=== PATIENT | male | born 2000 | race Two or more races ===

== ENCOUNTER 2024-07-07 01:10 | Inpatient (IN) | payer SELFPAY ==
[~2024-07-07] VITALS: Ht 167.6 cm; Wt 109.1 kg
[2024-07-07] MEDS: MORPHINE SULFATE 2 MG/ML SYRINGE IVP ONE ×2 (02:37→05:00)
[2024-07-07] MEDS: SODIUM CHLORIDE 0.9% 1,000 ML IV ONE (02:38)
[2024-07-07 02:39] LABS: ANION GAP 11 mmol/L (8-16); CARBON DIOXIDE 27 mmol/L (22-29); CHLORIDE 99 mmol/L (98-107); CREATININE 0.83 mg/dL (0.60-1.30); GLOMERULAR FILTR. RATE CALC > 60 mL/min (>60); GLUCOSE,RANDOM 106 mg/dL (70-110); LIPASE 27 U/L (16-77); POTASSIUM 4.2 mmol/L (3.5-5.1); SODIUM SERUM 137 mmol/L (136-145); UREA NITROGEN, BLOOD 18 mg/dL (7-18)
[2024-07-07 02:41] LABS: BASOPHILS % (AUTO) 0.3 % (0.0-2.0); EOSINOPHILS % (AUTO) 0.2 % (1.0-6.0); HEMATOCRIT 45.2 % (41-53); LYMPHOCYTES # (AUTO) 1.5 K/uL (1.0-4.8); LYMPHOCYTES % (AUTO) 8.8 % (22.0-44.0); MEAN CORPUSCULAR HEMOGLOBIN 28.8 pg (26.0-34.0); MEAN CORPUSCULAR HGB CONC 33.2 G/dL (31.0-37.0); MEAN CORPUSCULAR VOLUME 87 fL (80-100); MONOCYTES # (AUTO) 0.6 K/uL (0.1-1.0); MONOCYTES % (AUTO) 3.7 % (2.0-9.0); PLATELET COUNT (AUTO) 329 K/uL (150-450); RED CELL DISTRIBUTION WIDTH 12.8 % (11.5-14.5); WHITE BLOOD COUNT (AUTO) 17.2 K/uL (4.5-11.0)
[2024-07-07 02:59] LABS: APPEARANCE,URINE TURBID (CLEAR); BILIRUBIN,URINE NEGATIVE (NEGATIVE); COLOR,URINE YELLOW (YELLOW); GLUCOSE, URINE (UA) NEGATIVE (NEGATIVE); KETONES,URINE 40-60 mg/dL (NEGATIVE); LEUKOCYTE ESTERASE ,URINE NEGATIVE (NEGATIVE); NITRATE,URINE NEGATIVE (NEGATIVE); OCCULT BLOOD,URINE NEGATIVE (NEGATIVE); PH,URINE 7.5 (5.0-8.0); PROTEIN,URINE TRACE mg/dL (NEGATIVE); SPECIFIC GRAVITIY, URINE 1.026 (1.003-1.030); UROBILINOGEN,URINE <=1.0 mg/dL (<=1.0)
[2024-07-07 05:45] LABS: ALANINE AMINOTRANSFERASE 26 U/L (12-78); ALBUMIN 3.8 g/dL (3.4-5.0); ALKALINE PHOSPHATASE 98 U/L (46-116); ASPARTATE AMINOTRANSFERASE 16 U/L (15-37); BILIRUBIN,TOTAL 0.5 mg/dL (0.1-1.0); TOTAL PROTEIN, SERUM 8.1 g/dL (6.4-8.2)
[2024-07-07] MEDS ORDERED: SUGAMMADEX SODIUM 200 MG/2 ML VIAL IVP ONE (06:01)
[2024-07-07] MEDS ORDERED: ROCURONIUM BROMIDE 10 MG/ML 5 ML VIAL ONE (06:01)
[2024-07-07] MEDS ORDERED: MIDAZOLAM HCL 2 MG/2 ML VIAL ONE (06:01)
[2024-07-07] MEDS ORDERED: FentaNYL CITRATE PF 100 MCG/2 ML VIAL ONE (06:01)
[2024-07-07] MEDS ORDERED: ACETAMINOPHEN/ISO-OSM 1000 MG/100 ML BOTTLE IV ONE (06:01)
[2024-07-07] MEDS ORDERED: PROPOFOL 1% 20 ML VIAL IVP ONE (06:01)
[2024-07-07] MEDS ORDERED: ONDANSETRON HCL 4 MG/2 ML VIAL ONE (06:01)
[2024-07-07] MEDS ORDERED: KETOROLAC TROMETHAMINE 60 MG/2 ML VIAL IM ONE (06:01)
[2024-07-07] MEDS ORDERED: DEXAMETHASONE SOD PHOS 4 MG/ML VIAL ONE (06:01)
[2024-07-07] MEDS ORDERED: LIDOCAINE/PF 2% 5 ML SYRINGE IVP ONE (06:01)
[2024-07-07] MEDS ORDERED: METOPROLOL TARTRATE 5 MG/5 ML VIAL ONE (06:01)
[2024-07-07] MEDS ORDERED: MORPHINE SULFATE/PF 0.5 MG/ML 10 ML AMP ONE (06:01)
[2024-07-07] MEDS: PIPERACILLIN/TAZO 3.375 GM/D5W 50 ML IV ONE (07:13)
[2024-07-07 12:14] VITALS: BP 130/79; PULSE 90; RESP 18; TEMP 98.8; O2SAT 90
[2024-07-07] MEDS ORDERED: ZOLPIDEM TARTRATE 5 MG TABLET PO PRN (13:45)
[2024-07-07] MEDS ORDERED: ONDANSETRON HCL 4 MG/2 ML VIAL IVP PRN (13:45)
[2024-07-07] MEDS ORDERED: IPRATROPIUM BROMIDE 0.5 MG/2.5 ML NEB SOLUTION NEB PRN (13:45)
[2024-07-07] MEDS ORDERED: MAGNESIUM HYDROXIDE SUSPENSION 30 ML UDCUP PO PRN (13:45)
[2024-07-07] MEDS ORDERED: BISACODYL 10 MG RECTAL RECTAL SUPPOSITORY PR PRN (13:45)
[2024-07-07] MEDS ORDERED: ALBUTEROL SULFATE 2.5 MG/0.5 ML NEB SOLUTION NEB PRN (13:45)
[2024-07-07] MEDS: DEXTROSE 5%-0.45% SODIUM CHL 1,000 ML IV SCH (14:23)
[2024-07-07] MEDS: PIPERACILLIN/TAZO 3.375 GM/D5W 50 ML IV SCH (15:22)
[2024-07-07] MEDS: HEPARIN SODIUM,PORCINE 5,000 UNITS/ML VIAL SQ SCH (15:22)
[2024-07-07] MEDS: ACETAMINOPHEN 325 MG TABLET PO PRN (15:32)
[2024-07-07 16:05] VITALS: BP 132/76; PULSE 88; RESP 18; TEMP 101.1; O2SAT 98
[2024-07-07] MEDS ORDERED: MEBROFENIN TC99M/MCL ISOTOPE 1 EA INJ INJ ONE (18:30)
[2024-07-07 20:11] VITALS: BP 132/79; PULSE 86; RESP 18; TEMP 99.8; O2SAT 98
[2024-07-07 20:33] VITALS: TEMP 98.8
[2024-07-07] MEDS: MORPHINE SULFATE 2 MG/ML SYRINGE IVP PRN (20:33)
[2024-07-08 03:36] VITALS: BP 128/76; PULSE 91; RESP 18; TEMP 99.8; O2SAT 99
[2024-07-08 04:00] VITALS: TEMP 99
[2024-07-08 08:25] VITALS: BP 132/77; PULSE 89; RESP 18; TEMP 98.9; O2SAT 96
[2024-07-08] MEDS: PANTOPRAZOLE SODIUM 40 MG/VIAL IVP SCH (08:34)
[2024-07-08] MEDS ORDERED: RINGERS SOLUTION,LACTATED 1,000 ML IV ONE (09:08)
[2024-07-08] MEDS: ETHYL ALCOHOL 62% ANTISEPTIC NASAL SANITIZER 0.6 ML AMPUL NASAL ONE (09:32)
[2024-07-08] MEDS ORDERED: SODIUM CL IRRIG SOLN BAG 3,000 ML IRRIG ONE (10:23)
[2024-07-08] MEDS ORDERED: FentaNYL CITRATE PF 100 MCG/2 ML VIAL IVP PRN (10:45)
[2024-07-08] MEDS ORDERED: HYDROmorphone HCL 2 MG/ML SYRINGE IVP PRN (10:45)
[2024-07-08] MEDS ORDERED: MEPERIDINE-PF 25 MG/ML VIAL IVP PRN (10:45)
[2024-07-08] MEDS: CHLORHEXIDINE GLUCONATE 2% TOWELETTE [2'S/6'S] TP ONE (10:50)
[2024-07-08] MEDS: RINGERS SOLUTION,LACTATED 1,000 ML IV ONE (10:50)
[2024-07-08] MEDS: BUPIVACAINE 0.25%/EPI 1:200,000/PF 30 ML VIAL ONE (12:13)
[2024-07-08 15:38] LABS: BASOPHILS % (AUTO) 0.3 % (0.0-2.0); EOSINOPHILS % (AUTO) 0.1 % (1.0-6.0); HEMATOCRIT 41.2 % (41-53); HEMOGLOBIN 13.9 g/dL (13.5-17.5); LYMPHOCYTES # (AUTO) 0.8 K/uL (1.0-4.8); LYMPHOCYTES % (AUTO) 4.7 % (22.0-44.0); MEAN CORPUSCULAR HEMOGLOBIN 29.3 pg (26.0-34.0); MEAN CORPUSCULAR HGB CONC 33.7 G/dL (31.0-37.0); MEAN CORPUSCULAR VOLUME 87 fL (80-100); MONOCYTES # (AUTO) 0.7 K/uL (0.1-1.0); MONOCYTES % (AUTO) 4.1 % (2.0-9.0); NEUTROPHILS # (AUTO) 14.7 K/uL (1.8-7.7); PLATELET COUNT (AUTO) 310 K/uL (150-450); RED BLOOD CELL COUNT(AUTO) 4.73 MIL/uL (4.50-5.90); RED CELL DISTRIBUTION WIDTH 12.7 % (11.5-14.5); WHITE BLOOD COUNT (AUTO) 16.2 K/uL (4.5-11.0)
[2024-07-08 15:39] VITALS: BP 129/77; PULSE 86; RESP 17; TEMP 98.5; O2SAT 95
[2024-07-08 15:39] LABS: NEUTROPHILS % (AUTO) 90.8 % (40.0-70.0)
[2024-07-08 16:02] LABS: ALANINE AMINOTRANSFERASE 50 U/L (12-78); ALBUMIN 2.9 g/dL (3.4-5.0); ALKALINE PHOSPHATASE 90 U/L (46-116); ANION GAP 12 mmol/L (8-16); ASPARTATE AMINOTRANSFERASE 65 U/L (15-37); CALCIUM, TOTAL 8.6 mg/dL (8.8-10.5); CARBON DIOXIDE 23 mmol/L (22-29); CHLORIDE 99 mmol/L (98-107); GLOMERULAR FILTR. RATE CALC > 60 mL/min (>60); GLUCOSE,RANDOM 121 mg/dL (70-110); POTASSIUM 3.7 mmol/L (3.5-5.1); SODIUM SERUM 134 mmol/L (136-145); TOTAL PROTEIN, SERUM 7.2 g/dL (6.4-8.2); UREA NITROGEN, BLOOD 10 mg/dL (7-18)
[2024-07-08 19:28] VITALS: BP 114/65; PULSE 81; RESP 18; TEMP 98.1; O2SAT 96
[2024-07-08] MEDS: OXYGEN THERAPY IH SCH (20:00)
[2024-07-08] MEDS: HYDROCODONE/ACETAMINOPHEN 5-325 MG TABLET PO PRN (23:20)
[2024-07-09 05:04] VITALS: BP 129/73; PULSE 70; RESP 18; TEMP 98.9; O2SAT 95
[2024-07-09 07:54] VITALS: BP 129/76; PULSE 71; RESP 18; TEMP 98.7; O2SAT 96
[2024-07-09] MEDS ORDERED: AMOX-457 PO (14:25)
== END 2024-07-09 15:30 | disposition home or self-care (01) | DRG 419 ==
LOC: EMS 01:10 → EDH 05:35 → 6S 12:02
PROVIDERS: ADMIT Hospitalist; ATTEND Hospitalist
PROC: 0FT44ZZ Resection of Gallbladder, Percutaneous Endoscopic Approach (ICD-10-PCS; principal; 2024-07-08 12:00)
DX: K81.0 Acute cholecystitis (principal); E66.9 Obesity, unspecified; Z68.38 Body mass index [BMI] 38.0-38.9, adult; K82.8 Other specified diseases of gallbladder
CPT/HCPCS: 74176; 76705; 78226; 80048; 80053; 80076; 81003; 83690; 85025; 87040; 87081; 88304; 93005; 99285; A9537; G0238; J0131; J1100; J1644; J1885; J2250; J2270; J2274; J2405; J2470; J2543; J2704; J3010; J3490; J7030; J7120